=== PATIENT | female | born 1985 | race Caucasian/White ===

== ENCOUNTER 2023-10-26 08:37 | Outpatient (REF) | payer OTHER, SELFPAY | END 2023-10-26 08:38 | disposition home or self-care (01) | LOC: HO.UMASIMG 08:37 | PROVIDERS: PCP Nurse Practitioner; Visit Provider Nurse Practitioner | DX: R10.9 Unspecified abdominal pain (principal); R05.1 Acute cough; R53.83 Other fatigue; F43.25 Adjustment disorder with mixed disturbance of emotions and conduct | CPT/HCPCS: 76700 ==